=== PATIENT | male | born 1975 | race Caucasian/White ===

== ENCOUNTER 2020-03-16 11:16 | Outpatient (REF) | payer MEDICAID, SELFPAY | END 2020-03-16 11:17 | disposition home or self-care (01) | LOC: HO.LAB 11:16 | PROVIDERS: Visit Provider Internal Medicine | DX: Z20.828 Contact with and (suspected) exposure to other viral communicable diseases (principal) | CPT/HCPCS: 87635 ==

== ENCOUNTER 2020-12-21 08:06 | Outpatient (REF) | payer MEDICAID, SELFPAY ==
--- NOTE | ~2020-12-21 | XR_ITS ---
EXAMINATION: XR PELVIS XR HIP, LEFT CLINICAL INFORMATION: Pain. COMPARISON: None. TECHNIQUE: AP views of the pelvis. Crosstable lateral view of the left hip. FINDINGS: No acute fracture or dislocation. Small right hip marginal osteophytes. Total left hip arthroplasty. No acute hardware or osseous fracture. No perihardware lucency to suggest loosening or infection. No abnormal soft tissue calcification. XR/XR hip LT 1V IMPRESSION: Total left hip arthroplasty without evidence of complication. Mild right hip osteoarthritis.
--- NOTE | ~2020-12-21 | XR_ITS ---
EXAMINATION: XR PELVIS XR HIP, LEFT CLINICAL INFORMATION: Pain. COMPARISON: None. TECHNIQUE: AP views of the pelvis. Crosstable lateral view of the left hip. FINDINGS: No acute fracture or dislocation. Small right hip marginal osteophytes. Total left hip arthroplasty. No acute hardware or osseous fracture. No perihardware lucency to suggest loosening or infection. No abnormal soft tissue calcification. XR/XR pelvis 1-2V IMPRESSION: Total left hip arthroplasty without evidence of complication. Mild right hip osteoarthritis.
== END 2020-12-21 08:07 | disposition home or self-care (01) ==
LOC: HO.HOSX 08:06
PROVIDERS: Visit Provider Orthopaedic Surgery
DX: Z96.642 Presence of left artificial hip joint (principal); M76.899 Other specified enthesopathies of unspecified lower limb, excluding foot
CPT/HCPCS: 72170; 73501; 73502; 99212

== ENCOUNTER 2021-01-04 08:21 | Emergency (ER) | payer MEDICAID, SELFPAY ==
[2021-01-04 08:37] VITALS: BP 136/79; PULSE 77; RESP 18; TEMP 36.4; O2SAT 96
--- NOTE | 2021-01-04 09:42 | ED_ITS ---
HPI - URI/Sore Throat General Chief Complaint: Upper Respiratory Symptoms Stated Complaint: Sore Throat Time Seen by Provider: 01/04/21 09:18 Source: patient and pollution control technician Mode of arrival: ambulatory Limitations: language barrier History of Present Illness HPI Narrative: 45 yo male healthy here with complaints of sore throat with swallowing x 5 days. No fevers, chills, cough, rhinorrhea, ear pain or headache. COVID vaccine in October. No sick contact. Related Data Home Medications Medication Instructions Recorded Confirmed calcium polycarbophil 625 mg tablet 625 mg PO DAILY 12/21/20 cholecalciferol (vitamin D3) 50 50 mcg PO DAILY 12/21/20 mcg (2,000 unit) tablet ciclopirox 0.77 % topical cream appl TOPICAL 12/21/20 clonidine HCl 0.2 mg tablet 0.2 mg PO BID 12/21/20 melatonin 5 mg tablet 10 mg PO BEDTIME PRN 12/21/20 oxycodone-acetaminophen 5 mg-325 1 tab PO Q6H PRN 12/21/20 mg tablet polyvinyl alcohol 1.4 % eye drops 1 drp OPHTHALMIC (EYE) 12/21/20 quetiapine 50 mg tablet 50 mg PO BID 12/21/20 sildenafil 100 mg tablet 50 mg PO DAILY PRN 12/21/20 zolpidem 5 mg tablet 5 mg PO BEDTIME PRN 12/21/20 Previous Rx's Medication Instructions Recorded amoxicillin 500 mg tablet 500 mg PO BID #20 tab 01/04/21 Allergies Allergy/AdvReac Type Severity Reaction Status Date / Time No Known Allergies Allergy Verified 12/21/20 13:28 Review of Systems Review of Systems: Yes all other systems are reviewed and are negative Constitutional: Constitutional: Reports no additional constitutional complaints, Denies body ache(s), Denies chills, Denies fever(s), Denies headache(s) and Denies weakness Eyes: Eyes: Reports no additional eye complaints and Denies change in vision ENT: Reports system reviewed and no additional complaints, except as documented, Denies dizziness, Denies headache(s), Denies nasal congestion, Denies nasal discharge, Denies neck pain and Reports sore throat Cardiovascular: Cardiovascular: Reports no additional cardiovascular complaints, Denies chest pain, Denies leg edema and Denies dyspnea Respiratory: Respiratory: Reports no additional respiratory complaints, Denies cough and Denies dyspnea Gastrointestinal: Gastrointestinal: Reports no additional gastrointestinal complaints, Denies abdominal pain, Denies diarrhea, Denies nausea and Denies vomiting Genitourinary: Genitourinary: Denies urinary incontinence Musculoskeletal: Musculoskeletal: Reports no additional musculoskeletal complaints, Denies back pain, Denies arthralgias, Denies joint swelling, Denies neck pain, Denies numbness and Denies tingling Integumentary/Breasts: Skin/Breast: Reports system reviewed and no additional complaints, except as docu and Denies rash Neurologic: Reports system reviewed and no additional complaints, except as documented, Denies Abnormal speech present, Denies dizziness, Denies headache(s), Denies numbness, Denies tingling and Denies weakness PMFSH Past Medical History Attestation statement: The following information was validated with the patient. Source: old records reviewed and nursing notes reviewed Medical History Anxiety Depression Insomnia Surgical History History of left hip replacement Social History Social History (Updated 12/21/20 @ 13:29 by KELLY Bloom) Alcohol intake: current Alcohol intake frequency: holidays/special occasions only Patient Tobacco Use Status: Never used Tobacco Advance Directives: No Advance Directives Information Provided: No Current occupational status: disabled Physical Exam Vital Signs: Vital Signs: Last Vital Signs Temp 98.8 F 01/04/21 09:49 Pulse 66 01/04/21 09:49 Resp 17 01/04/21 09:49 BP 146/80 H 01/04/21 09:49 Pulse Ox 96 01/04/21 09:49 Body Mass Index 46.0 Const: General: cooperative, healthy appearing, comfortable and no acute distress Orientation/consciousness: patient oriented x3 Limitations: no limitations HENMT: Head: Yes normal to inspection Ears: hearing grossly normal bilaterally and TM's normal bilaterally General nose exam: Normal external nose present Face and sinus: Yes normal facial exam Mouth: Normal oral and palatal mucosa present Throat: Yes posterior oropharynx normal, Yes uvula midline, Yes abnormal tonsil (mild bilateral swelling, no exudate ) and No peritonsillar mass Eyes: General: appearance normal, both eyes and all related structures Pupils: Equal, round and reactive pupils present Neck: Neck: Yes normal visual inspection Chest: Chest palpation & inspection: normal inspection of the chest Resp: Effort & Inspection: normal respiratory effort Auscultation: clear to auscultation bilaterally Cardio: Rate: regular rate Rhythm: regular rhythm Peripheral pulses: Peripheral pulses 2+ throughout GI: Inspection: Yes normal to inspection Palpation (GI): Soft to palpation and nontender Auscultation: normal bowel sounds Back/Spine/Pelvis: Thoracic/Lumbar Spine: thoracic and lumbar spine normal to inspection Skin: General skin exam: no rashes or lesions noted Neuro: General: patient oriented x3, no focal motor deficits and normal sensation to monofilament Cranial nerves: Yes Equal, round and reactive pupils present Cognition (Neuro): normal cognition Speech: No Abnormal speech present Gait exam (Neuro): Normal gait present Motor exam (neuro): 5/5 motor strength present throughout Extrem: General: Yes normal to inspection Course Course Course Narrative: 45 yo male here with sore throat x 5 days. Will send rapid strep. -rapid strep negative. However, exam is c/w with strep pharyngitis. Will treat with course of antibiotics. Reviewed worrisome signs/symptoms with patient and when to return to ED. Comfortable with discharge home. MDM - URI/Sore Throat Differential Diagnosis Differential diagnosis: Likely upper respiratory infection and pharyngitis Medical Records Attestation: I reviewed the patient's medical records. Lab Data Attestation: I reviewed the patient's lab results. Labs: Lab Results 01/04/21 Range/Units 09:45 S. pyogenes GrpA BRANDY Negative (Negative) Discharge Plan Discharge Clinical Impression: Pharyngitis Patient Disposition: Home, Self-Care Instructions: Pharyngitis (ED) Additional Instructions: increase fluids, rest Motrin or Tylenol for pain or fever Salt water gargles Prescriptions: New amoxicillin 500 mg tablet 500 mg PO BID Qty: 20 RF: 0 No Action quetiapine 50 mg tablet 50 mg PO BID RF: 0 calcium polycarbophil 625 mg tablet 625 mg PO DAILY RF: 0 sildenafil 100 mg tablet 50 mg PO DAILY PRNRF: 0 polyvinyl alcohol 1.4 % drops 1 drp ophthalmic (eye) RF: 0 oxycodone-acetaminophen 5-325 mg tablet 1 tab PO Q6H PRN (Reason: severe pain) RF: 0 cholecalciferol (vitamin D3) 50 mcg (2,000 unit) tablet 50 mcg PO DAILY RF: 0 melatonin 5 mg tablet 10 mg PO BEDTIME PRN (Reason: insomnia) RF: 0 ciclopirox 0.77 % cream topical RF: 0 zolpidem 5 mg tablet 5 mg PO BEDTIME PRN (Reason: insomnia) RF: 0 clonidine HCl 0.2 mg tablet 0.2 mg PO BID RF: 0 Referrals: [facility] [Primary Care Provider] - 2 days Interventions: ED Discharge Assessment Last Done: 01/04/21 10:50 Discharge Date/Time: 01/04/21 10:50 Print Language: Faroese
[2021-01-04 09:49] VITALS: BP 146/80; PULSE 66; RESP 17; TEMP 37.1; O2SAT 96; BMI 46.0
[2021-01-04 09:58] LABS: Strep A Nucleic Acid Negative (Negative)
== END 2021-01-04 10:50 | disposition home or self-care (01) ==
PROVIDERS: Nurse Practitioner Family; Emergency Provider Emergency Medicine
DX: J02.9 Acute pharyngitis, unspecified (principal); Z20.822 Contact with and (suspected) exposure to COVID-19; Z79.899 Other long term (current) drug therapy
CPT/HCPCS: 36415; 87651; 99283

== ENCOUNTER 2021-12-06 12:16 | Outpatient (REF) | payer MEDICAID, SELFPAY | END 2021-12-06 12:17 | disposition home or self-care (01) | LOC: HO.HOSX 12:16 | PROVIDERS: Visit Provider Orthopaedic Surgery | DX: Z13.89 Encounter for screening for other disorder (principal) ==